=== PATIENT | female | born 1985 | race Caucasian/White ===

== ENCOUNTER 2017-05-14 19:20 | Emergency (ER) | payer BC | END 2017-05-14 19:49 | disposition home or self-care (01) | LOC: SCSER 19:20 | DX: T17.0XXA Foreign body in nasal sinus, initial encounter (principal); F98.8 Other specified behavioral and emotional disorders with onset usually occurring in childhood and adolescence; D70.4 Cyclic neutropenia; Z79.899 Other long term (current) drug therapy | CPT/HCPCS: 99283 ==

== ENCOUNTER 2018-11-17 05:27 | Inpatient (IN) | payer BC ==
[2018-11-17] MEDS ORDERED: CEFAZOLIN 2 GM in Premix Bag 1 BAG IVPB SCH (06:00)
[2018-11-17] MEDS ORDERED: Lactated Ringer's 1,000 ML IV SCH (06:00)
[2018-11-17] MEDS ORDERED: hydrALAZINE 20 MG/ML VIAL SLOW IVP PRN ×2 (06:00→08:53)
[2018-11-17] MEDS ORDERED: Bicitra 30 ML UDCUP PO SCH (06:00)
[2018-11-17] MEDS ORDERED: Promethazine HCl 25 MG/ML VIAL IM PRN ×2 (06:00→08:15)
[2018-11-17] MEDS ORDERED: Ondansetron PF 4 MG/2 ML Vial IVP PRN ×3 (06:00→08:53)
[2018-11-17 06:04] VITALS: BMI 30.2
[2018-11-17 06:35] LABS: Hemoglobin 9.7 g/dL (12.0-16.0); Mean Corpuscular HGB CONC 34.1 g/dL (32.0-36.0); Mean Corpuscular Hemoglobin 31.6 pg (27.0-31.0); Mean Corpuscular Volume 92.7 fL (78.0-98.0); Mean Platelet Volume 10.6 fL (7.4-10.4); Platelet Count 161 thou/uL (130-400); RBC Distribution Width 14.9 % (11.5-14.5); Red Blood Cell (RBC) Count 3.05 mill/uL (4.20-5.40); White Blood Cell (WBC) Count 4.5 thou/uL (4.8-10.8)
[2018-11-17] MEDS ORDERED: Clindamycin/D5W 900 mg/50 ml Premix Bag ONE (07:06)
[2018-11-17] MEDS ORDERED: MORPHINE 5 MG/10 ML PF VIAL ONE (07:16)
[2018-11-17] MEDS ORDERED: Ondansetron PF 4 MG/2 ML Vial ONE ×2 (07:17→13:11)
[2018-11-17] MEDS ORDERED: Oxytocin 10 UNITS/ML VIAL ONE ×2 (07:17→07:57)
[2018-11-17] MEDS ORDERED: ePHEDrine/0.9% NaCl/PF SYRINGE 50 mg/10 ml ONE (07:17)
[2018-11-17 07:19] LABS: HBSAg Index 0.17 S/CO (0-0.99); Hep B Surf Ag Non-Reactive S/CO (NonReactive); Syphilis Antibody Nonreactive (Nonreactive); Syphilis Antibody Index 0.02 S/CO (<1.00 Non-Reactive)
[2018-11-17] MEDS ORDERED: Metoclopramide HCl 10 MG/2 ML VIAL ONE ×2 (07:55→13:11)
[2018-11-17] MEDS ORDERED: Naloxone HCl 0.4 mg/ml Vial IVP PRN ×2 (08:15)
[2018-11-17] MEDS ORDERED: Communication Order-Pharmacy FS SCH (08:15)
[2018-11-17] MEDS ORDERED: Promethazine HCl 25 MG SUPP PR PRN (08:15)
[2018-11-17] MEDS ORDERED: diphenhydrAMINE 50 MG/ML VIAL IVP PRN (08:15)
[2018-11-17] MEDS ORDERED: Naloxone HCl 0.4 mg/ml Vial IV PRN (08:15)
[2018-11-17] MEDS ORDERED: diphenhydrAMINE 50 MG/ML VIAL ONE ×2 (08:15→13:11)
[2018-11-17] MEDS ORDERED: Adacel (T-DAP) 0.5 ML SYRINGE IM ONE (08:53)
[2018-11-17] MEDS ORDERED: Lanolin Ointment 7 GM TUBE TOP PRN (08:53)
[2018-11-17] MEDS ORDERED: Misoprostol 200 MCG TAB PR PRN (08:53)
[2018-11-17] MEDS ORDERED: Acetaminophen 325 MG TAB PO PRN (08:53)
[2018-11-17] MEDS ORDERED: Meperidine HCl/PF 25 MG/ML VIAL IM PRN ×2 (08:53→20:15)
[2018-11-17] MEDS ORDERED: Bisacodyl 10 MG SUPP PR PRN (08:53)
[2018-11-17] MEDS ORDERED: Zolpidem Tartrate 5 MG TAB PO PRN (08:53)
[2018-11-17] MEDS ORDERED: NS / Oxytocin 40 units/1000ml 1,000 ML IV SCH (09:00)
[2018-11-17] MEDS: Ketorolac Tromethamine 30 MG/ML VIAL IVP PRN ×2 (09:48→19:44)
[2018-11-17] MEDS: Docusate Calcium (SURFAK) 240 MG CAP PO SCH ×2 (09:57→21:58)
[2018-11-17] MEDS: Prenatal Vitamin 1 TAB PO SCH (09:57)
[2018-11-17] MEDS: Lactated Ringer's 1,000 ML IV SCH ×2 (15:21→17:22)
[2018-11-17] MEDS: Ferrous Sulfate 325 MG TAB PO SCH (16:22)
[2018-11-17] MEDS: Simethicone Chewable 80 MG TAB PO PRN (19:43)
[2018-11-18] MEDS: HYDROcodone/Acetaminophen 5/325 mg Tablet PO PRN ×6 (01:04→21:18)
[2018-11-18] MEDS: Lactated Ringer's 1,000 ML IV SCH ×3 (01:05→17:24)
[2018-11-18] MEDS ORDERED: Sodium Chloride 0.9% 10 ML ONE (04:44)
[2018-11-18] MEDS: Ketorolac Tromethamine 30 MG/ML VIAL IVP PRN (04:51)
[2018-11-18] MEDS: Simethicone Chewable 80 MG TAB PO PRN ×5 (04:54→21:20)
[2018-11-18 05:11] LABS: Hemoglobin 8.5 g/dL (12.0-16.0); Mean Corpuscular HGB CONC 33.5 g/dL (32.0-36.0); Mean Corpuscular Hemoglobin 31.9 pg (27.0-31.0); Mean Corpuscular Volume 95.3 fL (78.0-98.0); Mean Platelet Volume 10.4 fL (7.4-10.4); Platelet Count 150 thou/uL (130-400); RBC Distribution Width 15.1 % (11.5-14.5); Red Blood Cell (RBC) Count 2.64 mill/uL (4.20-5.40); White Blood Cell (WBC) Count 2.6 thou/uL (4.8-10.8)
[2018-11-18] MEDS: Docusate Calcium (SURFAK) 240 MG CAP PO SCH ×2 (09:11→21:18)
[2018-11-18] MEDS: Ferrous Sulfate 325 MG TAB PO SCH ×2 (09:11→17:24)
[2018-11-18] MEDS: Prenatal Vitamin 1 TAB PO SCH (09:11)
[2018-11-18] MEDS: Ibuprofen 800 MG TAB PO SCH ×2 (13:59→21:18)
--- NOTE | 2018-11-18 18:12 | OP ---
DATE OF PROCEDURE: 11/17/2018 PROGRAM MANAGEMENT SPECIALIST SURGEON: Amaury Valdovinos DO PREOPERATIVE DIAGNOSES: 1. Term intrauterine at 38 and 1/7 weeks. 2. Twin gestation. 3. Twin B breech presentation. 4. Discordant growth. POSTOPERATIVE DIAGNOSES: 1. Term intrauterine at 38 and 1/7 weeks. 2. Twin gestation. 3. Twin B breech presentation. 4. Discordant growth. PROCEDURES: Primary low transverse section. ANESTHESIA: Spinal catheterization. FINDINGS: 1. Twin gestation-diamniotic dichorionic. 2. Progressive discordant growth with testing. 3. Twin B footling breech presentation. 4. Twin A, 6 pounds and 11 ounces, Apgars 8 and 9. Twin B, 6 pounds and 1 ounce , Apgars 8 and 9. 5. Normal uterus, tubes, and ovaries. COMPLICATIONS: None. SPECIMENS REMOVED: 1. Cord blood. 2. Placenta to pathology. BLOOD LOSS: Less than 700 mL (QBL equals 621 mL). DESCRIPTION OF PROCEDURE: After thorough consent and counseling, Ms. Xavier was taken to the operating room and an adequate level of anesthesia was obtained via spinal catheterization. The patient was prepped and draped in usual sterile fashion for abdominal surgery. A Bowers was placed in the bladder, which was noted to be draining clear urine. Attention was then turned to performing the primary low-transverse section for a twin gestation. After team time-out, a Pfannenstiel incision was made, carried sharply to the fascia, which was also sharply incised. The midline was identified and the Pfannenstiel incision was made, carried sharply to the fascia, which was also sharply incised. The midline was identified and the rectus muscles were retracted laterally. The abdominoperitoneal cavity was entered with usual safeguard carried out. A retractor was placed and a bladder flap was created on the vesicouterine peritoneum. A low transverse incision was made on the well-developed lower uterine segment. Upon entering the amniotic sac of twin A, copious amount of clear amniotic fluid was visualized. The infant was noted to be vertex presentation in the occiput transverse position still high in the pelvis. Head was delivered, and baby was bulb suctioned on the abdomen. The cord was doubly clamped and cut. The was handed to the Neonatology Team in attendance for the delivery. Twin A was a vigorous viable female, weighing 6 pounds and 11 ounces with Apgars of 8 and 9 obtained at 1 and 5 minutes respectively. Amniotomy was then performed on the sac of twin B. Clear fluid was noted. Twin B was noted to be footling breech presentation. The breech was carefully delivered in an atraumatic fashion. Using the Mauriceau maneuver, shoulders and after coming head were then delivered. The cord was doubly clamped and cut. The was handed to the second Neonatology Team in attendance for delivery. Twin B was a vigorous viable male weighing 6 pounds and 1 ounce with Apgars of 8 & 9 @ 1 and 5 minutes respectively. Cord blood was then obtained from both umbilical cords. The placenta was manually removed from the uterus. The uterus was exteriorized and good tone was noted. The uterine cavity was cleared of any remaining clot and fluid. Good tone was noted. The placenta was sent to pathology for evaluation to confirm a diamniotic dichorionic placenta. The placenta of twin A was somewhat bigger than B, as suspected secondary to progressive discordant growth. The low-transverse incision was then closed with a running locking ligature of #1 chromic. A second imbricating layer was placed to facilitate strengthened hemostasis. The vesicouterine peritoneum was reapproximated with running ligature of 3-0 Monocryl. The posterior cul-de-sac and gutters were cleared of clot and fluid. The uterus, fallopian tubes, and ovaries were inspected and noted to be normal. No pathology was identified. Seprafilm was then applied to the low-transverse incision and to the anterior aspect of the uterus for adhesion prevention. The uterus was returned to the abdomen and good tone and hemostasis were once again noted. Lap, sponge, and needle counts were correct. The peritoneum was closed with a running ligature of 2-0 Vicryl suture. The rectus muscles were reapproximated in the midline with interrupted ligatures of 2-0 Vicryl and 0 chromic suture. The fascia was then closed with 2 ligatures of 0 Vicryl suture, which were tied in the midline. Good fascial integrity was appreciated. The incision was irrigated with copious amount of warm normal saline. Hemostasis was obtained with Bovie cauterization. The subcutaneous tissue was then closed with multiple [id number] ligatures of 2-0 plain suture. The skin was then closed with a subcuticular stitch of 4-0 Monocryl and dressed with Dermabond. Pressure dressing and ice packs were subsequently placed. Lap, sponge, and needle counts were correct x3. Estimated blood loss during the surgical procedure was less than 700 mL. The patient was taken to the recovery room in good condition. Immediately following surgery, the patient and family were made aware of the surgical procedure and operative findings. Questions were answered to her satisfaction. The babies were shortly returned to mother for [id number] contact and feeding. The patient and her were very appreciative of the care rendered here at [facility], this morning. Job ID: [id number]
[2018-11-19] MEDS: HYDROcodone/Acetaminophen 5/325 mg Tablet PO PRN ×5 (00:55→20:19)
[2018-11-19] MEDS: Lactated Ringer's 1,000 ML IV SCH ×4 (04:51→19:00)
[2018-11-19] MEDS: Ibuprofen 800 MG TAB PO SCH ×3 (05:10→21:22)
[2018-11-19] MEDS: Prenatal Vitamin 1 TAB PO SCH (09:21)
[2018-11-19] MEDS: Ferrous Sulfate 325 MG TAB PO SCH ×2 (09:21→17:01)
[2018-11-19] MEDS: Simethicone Chewable 80 MG TAB PO PRN ×3 (09:21→20:20)
[2018-11-19] MEDS: Docusate Calcium (SURFAK) 240 MG CAP PO SCH ×2 (09:21→21:22)
[2018-11-20] MEDS: HYDROcodone/Acetaminophen 5/325 mg Tablet PO PRN ×6 (00:31→21:28)
[2018-11-20] MEDS: Ibuprofen 800 MG TAB PO SCH ×4 (06:38→23:45)
[2018-11-20] MEDS: Simethicone Chewable 80 MG TAB PO PRN ×2 (07:33→20:37)
[2018-11-20] MEDS: Ferrous Sulfate 325 MG TAB PO SCH ×2 (07:34→17:30)
[2018-11-20] MEDS: Prenatal Vitamin 1 TAB PO SCH (07:34)
[2018-11-20] MEDS: Docusate Calcium (SURFAK) 240 MG CAP PO SCH ×2 (07:34→20:37)
[2018-11-20] MEDS: Lactated Ringer's 1,000 ML IV SCH (10:09)
[2018-11-21] MEDS: Ibuprofen 800 MG TAB PO SCH ×3 (01:13→08:19)
[2018-11-21] MEDS: HYDROcodone/Acetaminophen 5/325 mg Tablet PO PRN ×2 (01:16→10:35)
[2018-11-21 08:07] VITALS: BP 138/65; TEMP 98.1
[2018-11-21] MEDS: Prenatal Vitamin 1 TAB PO SCH (08:18)
[2018-11-21] MEDS: Ferrous Sulfate 325 MG TAB PO SCH (08:19)
[2018-11-21] MEDS: Docusate Calcium (SURFAK) 240 MG CAP PO SCH (08:19)
[2018-11-21] MEDS: Simethicone Chewable 80 MG TAB PO PRN (10:38)
== END 2018-11-21 11:30 | disposition home or self-care (01) | DRG 788 ==
LOC: L&D 05:27 → 3SW 13:44
PROVIDERS: ADMIT Obstetrics & Gynecology; ATTEND Obstetrics & Gynecology
PROC: 10D00Z1 Extraction of Products of Conception, Low, Open Approach (ICD-10-PCS; principal; 2018-11-17)
DX: O30.043 Twin pregnancy, dichorionic/diamniotic, third trimester (principal); O36.5930 Maternal care for other known or suspected poor fetal growth, third trimester, not applicable or unspecified; Z3A.38 38 weeks gestation of pregnancy; Z37.2 Twins, both liveborn; O36.5931 Maternal care for other known or suspected poor fetal growth, third trimester, fetus 1; O32.8XX1 Maternal care for other malpresentation of fetus, fetus 1
CPT/HCPCS: 36415; 51702; 85027; 86780; 86850; 86900; 86901; 87340; 88307; J1200; J1885; J2274; J2405; J2590; J2765; J3490

== ENCOUNTER 2022-02-07 18:59 | Inpatient (IN) | payer BC ==
[2022-02-07 22:09] VITALS: BMI 21.2
[2022-02-07] MEDS ORDERED: Ondansetron PF 4 MG/2 ML Vial IVP SCH (23:00)
[2022-02-07] MEDS ORDERED: Acetaminophen 500 MG TAB PO SCH (23:00)
[2022-02-07] MEDS ORDERED: Ondansetron PF 4 MG/2 ML Vial IVP PRN (23:44)
[2022-02-07] MEDS ORDERED: Ibuprofen 800 MG TAB PO SCH (23:45)
[2022-02-08] MEDS ORDERED: TBO-Filgrastim 300 MCG/0.5 ML VIAL SC SCH (01:30)
[2022-02-08 01:32] LABS: Bacteria/HPF 3+ HPF (None Seen); Bilirubin Negative (Negative); Blood, Urine Negative (Negative); CAUTI Indications for Culture Fever or rigors; Clarity Clear (Clear); Glucose, Urine (Dipstick) Normal (Negative); Ketone, Urine 20 mg/dL (Negative); Leukocyte Negative Leu/uL (Negative); Nitrite Negative (Negative); Protein, Urine (Dipstick) Negative (Neg-Trace); RBC/HPF 0-3 HPF (0-3); Specific Gravity, Urine 1.028 (1.002-1.036); Squamous Epithelial 0-3 HPF (0-3); Urobilinogen Normal mg/dL (Less than 2); WBC/HPF 0-3 HPF (0-3)
[2022-02-08 01:33] LABS: Urine Culture Reflex No No
[2022-02-08] MEDS: Vancomycin 1 GM in Premix Bag 1 BAG IVPB SCH ×2 (01:45→10:06)
[2022-02-08 03:40] LABS: SARS-CoV-2 NAA Rapid Test Not Detected (NotDetected)
[2022-02-08] MEDS ORDERED: Cefepime 1 GM in Sodium Chloride 0.9% 100 ML IVPB SCH (04:00)
[2022-02-08 07:05] LABS: Anion Gap 12 mmol/L (10-20); BUN (Urea Nitrogen) 5 mg/dL (7.0-18.7); Calc. Creatinine Clearance 109 mL/min (70-130); Calcium 8.6 mg/dL (7.8-10.44); Carbon Dioxide 23 mmol/L (22-29); Chloride 102 mmol/L (98-107); Estimated GFR 113; Glucose 122 mg/dL (70-105); Potassium 3.7 mmol/L (3.5-5.1); Sodium 133 mmol/L (136-145)
[2022-02-08] MEDS: Acetaminophen 325 MG TAB PO PRN ×4 (08:22→22:40)
[2022-02-08 08:27] LABS: Hemoglobin 12.2 g/dL (12.0-16.0); Mean Corpuscular HGB CONC 33.1 g/dL (32.0-36.0); Mean Corpuscular Hemoglobin 33.7 pg (27.0-31.0); Mean Platelet Volume 8.6 fL (7.4-10.4); Platelet Count 152 10x3/uL (130-400); RBC Distribution Width 13.4 % (11.5-14.5); Red Blood Cell (RBC) Count 3.64 mill/uL (4.20-5.40); White Blood Cell (WBC) Count 1.1 10x3/uL (4.8-10.8)
[2022-02-08 09:42] LABS: Band 8 % (5-11); Lymphocytes 44 % (21-51); MDiff Complete? YES; Monocytes 40 % (0-10); Neutrophil 4 % (42-75); Platelet Morphology Comment Appears Adequate; RBC Morphology Normal; Reactive Lymphocytes 4 % (0-10)
[2022-02-08] MEDS: Enoxaparin Sodium 40 MG/0.4 ML SYRINGE SC SCH (10:11)
[2022-02-08] MEDS ORDERED: Ibuprofen 200 MG TAB PO SCH (12:00)
[2022-02-08] MEDS: Ketorolac Tromethamine 30 MG/ML VIAL IVP PRN ×2 (13:55→20:38)
[2022-02-08] MEDS: Cefepime 2 GM in Sodium Chloride 0.9% 100 ML IVPB SCH (16:28)
[2022-02-08 17:17] LABS: Vancomycin, Trough 10.6 ug/mL
[2022-02-08] MEDS: VANCOMYCIN 1.25 GM/250 ML BAG 1.25 GM in Premix Bag 1 BAG IVPB SCH (18:25)
[2022-02-09] MEDS: HYDROcodone/Acetaminophen 5/325 mg Tablet PO PRN ×5 (01:15→22:12)
[2022-02-09] MEDS: Ketorolac Tromethamine 30 MG/ML VIAL IVP PRN ×3 (01:23→13:03)
[2022-02-09] MEDS: VANCOMYCIN 1.25 GM/250 ML BAG 1.25 GM in Premix Bag 1 BAG IVPB SCH ×3 (02:10→19:03)
[2022-02-09] MEDS: Cefepime 2 GM in Sodium Chloride 0.9% 100 ML IVPB SCH ×2 (04:59→16:59)
[2022-02-09] MEDS: Enoxaparin Sodium 40 MG/0.4 ML SYRINGE SC SCH (09:58)
[2022-02-09 10:47] LABS: Anion Gap 8 mmol/L (10-20); BUN (Urea Nitrogen) 4 mg/dL (7.0-18.7); Calc. Creatinine Clearance 119 mL/min (70-130); Calcium 8.2 mg/dL (7.8-10.44); Carbon Dioxide 25 mmol/L (22-29); Chloride 107 mmol/L (98-107); Estimated GFR 116; Glucose 121 mg/dL (70-105); Potassium 3.2 mmol/L (3.5-5.1); Sodium 137 mmol/L (136-145)
[2022-02-09 10:59] LABS: Hemoglobin 10.9 g/dL (12.0-16.0); Mean Corpuscular HGB CONC 32.7 g/dL (32.0-36.0); Mean Corpuscular Hemoglobin 34.1 pg (27.0-31.0); Mean Platelet Volume 8.9 fL (7.4-10.4); Platelet Count 146 10x3/uL (130-400); RBC Distribution Width 13.5 % (11.5-14.5); White Blood Cell (WBC) Count 1.1 10x3/uL (4.8-10.8)
[2022-02-09 11:53] LABS: Band 12 % (5-11); Eosinophils 4 % (0-10); Lymphocytes 27 % (21-51); MDiff Complete? YES; Monocytes 22 % (0-10); Neutrophil 31 % (42-75); Platelet Morphology Comment Appears Adequate; RBC Morphology Normal
[2022-02-09 17:19] LABS: Vancomycin, Trough 13.4 ug/mL
[2022-02-09] MEDS ORDERED: TBO-Filgrastim 300 MCG/0.5 ML VIAL SC SCH (18:00)
[2022-02-09] MEDS ORDERED: Vancomycin 1.5 GRAM/300 ML BAG 1.5 GM in Premix Bag 1 BAG IVPB SCH (19:00)
[2022-02-09] MEDS ORDERED: Ondansetron PF 4 MG/2 ML Vial IVP SCH (22:30)
[2022-02-10] MEDS: Vancomycin 1.5 GRAM/300 ML BAG 1.5 GM in Premix Bag 1 BAG IVPB SCH ×2 (01:16→08:39)
[2022-02-10] MEDS: Cefepime 2 GM in Sodium Chloride 0.9% 100 ML IVPB SCH (05:00)
[2022-02-10 06:29] LABS: Anion Gap 12 mmol/L (10-20); BUN (Urea Nitrogen) 4 mg/dL (7.0-18.7); Calc. Creatinine Clearance 123 mL/min (70-130); Calcium 8.3 mg/dL (7.8-10.44); Carbon Dioxide 21 mmol/L (22-29); Chloride 108 mmol/L (98-107); Estimated GFR 117; Glucose 115 mg/dL (70-105); Potassium 3.5 mmol/L (3.5-5.1); Sodium 137 mmol/L (136-145)
[2022-02-10 06:54] LABS: Hemoglobin 11.3 g/dL (12.0-16.0); Mean Corpuscular HGB CONC 32.7 g/dL (32.0-36.0); Mean Corpuscular Hemoglobin 34.7 pg (27.0-31.0); Mean Platelet Volume 8.9 fL (7.4-10.4); Platelet Count 135 10x3/uL (130-400); RBC Distribution Width 13.6 % (11.5-14.5); Red Blood Cell (RBC) Count 3.25 mill/uL (4.20-5.40); White Blood Cell (WBC) Count 1.5 10x3/uL (4.8-10.8)
[2022-02-10] MEDS ORDERED: Acetaminophen 325 MG TAB PO PRN (07:50)
[2022-02-10] MEDS: HYDROcodone/Acetaminophen 5/325 mg Tablet PO PRN (08:38)
[2022-02-10] MEDS: Enoxaparin Sodium 40 MG/0.4 ML SYRINGE SC SCH ×2 (08:39→09:54)
[2022-02-10] MEDS ORDERED: Promethazine HCl 12.5 MG in Sodium Chloride 0.9% 50 ML IVPB PRN (09:57)
[2022-02-10] MEDS ORDERED: Ibuprofen 600 MG TAB PO PRN (09:58)
[2022-02-10 11:32] LABS: Band 6 % (5-11); Eosinophils 4 % (0-10); Lymphocytes 46 % (21-51); MDiff Complete? YES; Macrocytosis SLIGHT = 6-15 cells (100X) (0-5/hpf); Monocytes 22 % (0-10); Neutrophil 22 % (42-75); Platelet Morphology Comment Appears Adequate; Polychromasia SLIGHT = 2-3 cells (100X) (0-2/hpf)
[2022-02-10 12:46] VITALS: BP 103/69; TEMP 97.9
[2022-02-10] MEDS ORDERED: Sulfameth/Trimethoprim DS 800-160mg TAB PO SCH (21:00)
[2022-02-11] MEDS ORDERED: Prevnar 13-Val Conj/PF 0.5 ML SYRINGE IM ONE (09:00)
[2022-02-11] MEDS ORDERED: FLU VACC QS2022-23(6MOS UP)/PF 60 MCG/0.5 ML SYRINGE IM ONE (09:00)
== END 2022-02-10 15:25 | disposition home or self-care (01) | DRG 603 ==
LOC: SJJU 20:43
PROVIDERS: ADMIT Internal Medicine; ATTEND Internal Medicine
DX: L03.113 Cellulitis of right upper limb (principal); F41.9 Anxiety disorder, unspecified; D64.9 Anemia, unspecified; D70.4 Cyclic neutropenia; Z20.822 Contact with and (suspected) exposure to COVID-19; F17.210 Nicotine dependence, cigarettes, uncomplicated; Z88.8 Allergy status to other drugs, medicaments and biological substances; Z98.890 Other specified postprocedural states; Z79.899 Other long term (current) drug therapy
CPT/HCPCS: 36415; 80048; 80202; 81001; 85025; 86140; 87040; J0692; J1447; J1650; J1885; J2405; J3370; J3370-JW; J3490